=== PATIENT | female | born 1955 ===

== ENCOUNTER → 2018-06-05 | Outpatient (CLI) | payer MEDICARE, OTHER ==
[~2018-06-05] MED LIST: ACET-1600 PO; BLAC20TA PO; CLON0.5T11 PO; GLUC1000 PO; VIT-13 PO; VITAMIN B PO
[2018-06-05 11:41] LABS: BASOPHILS # (AUTO) 0.04 x10^3/uL (0-0.1); BASOPHILS % (AUTO) 1 % (0-1); EOSINOPHILS # (AUTO) 0.12 x10^3/uL (0-0.4); EOSINOPHILS % (AUTO) 3 % (1-7); LYMPHOCYTES % (AUTO) 30 % (22-44); MD NO; MEAN CORPUSCULAR HEMOGLOBIN 31.6 pg (27.0-34.8); MEAN PLATELET VOLUME 7.6 fL (7.4-10.4); MONOCYTES # (AUTO) 0.29 x10^3/uL (0.2-0.8); MONOCYTES % (AUTO) 6 % (2-9); NEUTROPHILS # (AUTO) 3.04 x10^3/uL (1.8-6.8); NEUTROPHILS % (AUTO) 61 % (42-75); PLATELET COUNT 284 x10^3/uL (130-400); RED BLOOD COUNT 4.73 x10^6/uL (3.82-5.3); RED CELL DISTRIBUTION WIDTH 13.5 % (9.6-15.2)
[2018-06-05 11:50] LABS: ANION GAP 9 mmol/L (5-15); CALCIUM 8.6 mg/dL (8.5-10.1); CHLORIDE 106 mmol/L (98-107); CREATININE 0.48 mg/dL (0.55-1.02); INTERNATIONAL NORMALIZED RATIO 1.04 (0.93-1.1)
[2018-06-05 12:45] LABS: HEMOGLOBIN A1C 6.3 % (4.2-6.3)
== END | disposition home or self-care (01) ==
LOC: STAR 10:34
PROVIDERS: ATTEND Orthopaedic Surgery
DX: Z01.818 Encounter for other preprocedural examination (principal); M17.11 Unilateral primary osteoarthritis, right knee
CPT/HCPCS: 36415; 80048; 83036; 85025; 85610; 85730; 87081; 87147; 93005

== ENCOUNTER 2018-06-12 05:59 | Observation (INO) | payer MEDICARE, OTHER ==
[2018-06-05 12:06] VITALS: BP 154/89
[~2018-06-12] VITALS: Ht 161.3 cm; Wt 80.5 kg
[2018-06-12] MEDS ORDERED: LACTATED RINGERS 1,000 ML IV SCH (06:49)
[2018-06-12] MEDS ORDERED: BISACODYL 10 MG SUPP PR PRN (07:00)
[2018-06-12] MEDS ORDERED: SENNA/DOCUSATE TABLET PO PRN (07:00)
[2018-06-12] MEDS ORDERED: ACETAMINOPHEN 650 MG/20.3 ML UDC PO PRN (07:00)
[2018-06-12] MEDS ORDERED: ONDANSETRON 4 MG TABLET PO PRN (07:00)
[2018-06-12] MEDS ORDERED: HYDROmorphone 1 MG/ML, 1ML AMP IV PRN (07:00)
[2018-06-12] MEDS ORDERED: SCOPOLAMINE PATCH, 1.5MG PATCH.TD72 TD ONE ×2 (07:00→07:27)
[2018-06-12] MEDS ORDERED: MAGNESIUM HYDROXIDE 8%, 30ML UDC PO PRN (07:00)
[2018-06-12] MEDS ORDERED: TEMPLATE NON-FORMULARY MED. (Clonazepam** 0.5 MG) PO SCH (07:00)
[2018-06-12] MEDS ORDERED: ZOLPIDEM 5MG TABLET PO PRN (07:00)
[2018-06-12] MEDS ORDERED: GABAPENTIN 300 MG CAPSULE PO ONE (07:00)
[2018-06-12] MEDS ORDERED: DIPHENHYDRAMINE 50 MG CAPSULE PO PRN (07:00)
[2018-06-12] MEDS ORDERED: HYDROcodone/APAP 5/325 TABLET PO PRN (07:00)
[2018-06-12] MEDS ORDERED: ONDANSETRON 2MG/ML, 2ML IV PRN (07:00)
[2018-06-12] MEDS ORDERED: ACETAMINOPHEN 500 MG TABLET ONE (07:13)
[2018-06-12] MEDS ORDERED: GABAPENTIN 300 MG CAPSULE ONE (07:13)
[2018-06-12] MEDS ORDERED: ACETAMINOPHEN 500 MG TABLET PO ONE (07:30)
[2018-06-12] MEDS ORDERED: BUPIVACAINE/PF 0.5% ONE (07:32)
[2018-06-12] MEDS ORDERED: MIDAZOLAM 1 MG/ML, 2ML ONE (07:34)
[2018-06-12] MEDS ORDERED: cloniDINE/PF 100 MCG/ML, 10 ML ONE (07:37)
[2018-06-12] MEDS ORDERED: SODIUM CHLORIDE 0.9% 100 ML ONE (07:39)
[2018-06-12] MEDS ORDERED: VANCOMYCIN 1,000 MG ONE (07:39)
[2018-06-12] MEDS ORDERED: TRANEXAMIC ACID 100 MG/ML, 10ML ONE ×2 (07:39)
[2018-06-12] MEDS ORDERED: EPINEPHRINE 1 MG/ML, 1ML ONE (07:39)
[2018-06-12] MEDS ORDERED: KETOROLAC 60 MG/2 ML ONE (07:39)
[2018-06-12] MEDS ORDERED: ROPIvacaine/PF 0.5%, 30 ML ONE (07:39)
[2018-06-12] MEDS ORDERED: FENTANYL PF 100 MCG/2ML ONE ×3 (08:08→10:03)
[2018-06-12] MEDS ORDERED: PROPOFOL 10 MG/ML, 20ML ONE (08:09)
[2018-06-12] MEDS ORDERED: ONDANSETRON 2MG/ML, 2ML ONE (08:22)
[2018-06-12] MEDS ORDERED: ROCURONIUM 10 MG/ML,10ML ONE (08:22)
[2018-06-12] MEDS ORDERED: GLYCOPYRROLATE 0.2MG/1ML, 5ML ONE (08:22)
[2018-06-12] MEDS ORDERED: SUCCINYLCHOLINE 20 MG/ML, 10ML ONE (08:22)
[2018-06-12] MEDS ORDERED: NEOSTIGMINE 1 MG/ML, 10ML ONE (08:22)
[2018-06-12] MEDS ORDERED: CEFAZOLIN 1,000 MG ONE (08:22)
[2018-06-12] MEDS ORDERED: DEXAMETHASONE 4 MG/ML, 1ML ONE ×2 (09:17)
[2018-06-12] MEDS ORDERED: MEPERIDINE/PF 25MG/0.5ML IVPush PRN (09:30)
[2018-06-12] MEDS ORDERED: OXYcodone 5 MG/5 ML ORAL.SOL UDC PO PRN (09:30)
[2018-06-12] MEDS ORDERED: LORazepam 2 MG/ML, 1ML IVPush PRN (09:30)
[2018-06-12] MEDS ORDERED: METOCLOPRAMIDE 5 MG/ML, 2ML IV PRN (09:30)
[2018-06-12] MEDS ORDERED: HYDROmorphone 2 MG/ML, 1ML ONE ×2 (10:03→16:54)
[2018-06-12] MEDS ORDERED: OXYcodone 5 MG/5 ML ORAL.SOL UDC ONE (10:03)
[2018-06-12] MEDS: FENTANYL PF 100 MCG/2ML IV PRN ×2 (10:07→10:36)
[2018-06-12] MEDS: HYDROmorphone 2 MG/ML, 1ML IVPush PRN ×3 (10:07→10:36)
[2018-06-12] MEDS ORDERED: DIPHENHYDRAMINE 50 MG/ML, 1ML ONE (10:54)
[2018-06-12 11:20] VITALS: BP 118/75
[2018-06-12 13:20] VITALS: BP 128/67
[2018-06-12] MEDS: OXYcodone IR 5MG TABLET PO PRN ×2 (13:53→17:53)
[2018-06-12] MEDS: NS + 20MEQ KCL 1,000 ML IV SCH ×2 (13:53→21:09)
[2018-06-12] MEDS: DOCUSATE 100 MG CAPSULE PO SCH ×2 (13:57→21:11)
[2018-06-12] MEDS: CEFAZOLIN PMX 2GM/50ML 50 ML IVPB SCH (16:18)
[2018-06-12 19:10] VITALS: BP 122/67
[2018-06-13] MEDS: CEFAZOLIN PMX 2GM/50ML 50 ML IVPB SCH (00:09)
[2018-06-13] MEDS: OXYcodone IR 5MG TABLET PO PRN ×2 (00:10→03:55)
[2018-06-13] MEDS ORDERED: OXYC5CAP2 PO (00:50)
[2018-06-13] MEDS ORDERED: TRAM50TA2 PO (00:51)
[2018-06-13] MEDS ORDERED: MELO7.5T31 PO (00:53)
[2018-06-13 01:00] VITALS: BP 129/74
[2018-06-13] MEDS ORDERED: DEXAMETHASONE 4 MG/ML, 1ML IVPush SCH (06:00)
[2018-06-13] MEDS ORDERED: ASPIRIN 81 MG TABLET EC PO SCH (06:00)
[2018-06-13 07:55] VITALS: BP 114/73
[2018-06-13] MEDS: DOCUSATE 100 MG CAPSULE PO SCH (08:07)
[2018-06-13] MEDS: NS + 20MEQ KCL 1,000 ML IV SCH (10:43)
== END 2018-06-13 11:20 | disposition home or self-care (01) ==
LOC: OUT 05:59 → 4NOR 11:19 → OUT 23:56 → 4NOR 06-13 11:20
PROVIDERS: ADMIT Orthopaedic Surgery; ATTEND Orthopaedic Surgery
DX: M17.11 Unilateral primary osteoarthritis, right knee (principal); M24.561 Contracture, right knee; Z96.652 Presence of left artificial knee joint
CPT/HCPCS: 27447; 36415; 85014; 85018; 96365; 96366; 96375; 97161; 97165; 97535; C1713; C1776; G0378; G8978; G8979; G8980; G8984; G8985; G8986; J0171; J0330; J0690; J0735; J1100; J1170; J1885; J2250; J2405; J2704; J2710; J2795; J3010; J3370; J3480; J3490; J7120; 96374